=== PATIENT | female | born 2000 | race Two or more races ===

== ENCOUNTER 2024-02-15 23:14 | Emergency (ER) | payer MEDICAID ==
[~2024-02-15] VITALS: Ht 165.1 cm; Wt 71.8 kg
--- NOTE | 2024-02-15 23:54 | ED.PDOC ---
History of Present Illness HPI Comments 23 y/o F presents with c/o shortness of breath, chest-wall tightness, generalized weakness, chills, and nausea, today. Patient endorses on being 26x weeks with her 1st , currently ([id number]) and having sudden and unprovoked onset of symptoms, this evening, an hour prior to arrival to ED triage. Patient comments on having no prior history of symptoms in the past in addition to noticing her "finger tips turning blue," earlier. Patient reports no additional relevant or pertinent Hx, such as recent injuries, strenuous activities, or stressors. She denies having any palpitations, cough, vomiting, fever, or other associated symptoms or modifiers at this time. Chief Complaint: Shortness of Breath Time Seen by MD: 23:30 Reviewed Notes: Nurses Notes, Medications, Allergies Allergies: Coded Allergies: NO KNOWN ALLERGIES (Unverified , 02/16/24) Information Source: Patient Mode of Arrival: Ambulatory Severity: Moderate Timing: Hours Duration: Since onset Prehospital treatment: None Past Medical History PAST MEDICAL HISTORY: Denies Surgical History: Denies all surgeries SEC REPORTING CONSULTANT History: No Pertinent SEC REPORTING CONSULTANT History 1 Para 0 AB 0 LMP 08/24/23 Family History Family History: Unknown Social History Smoker: Non-Smoker Alcohol: Denies ETOH Use Drugs: Denies Drug Use Lives In: Home Constitutional: reports: chills Respiratory: reports: shortness of breath Cardiovascular: reports: chest pain Gastrointestinal: reports: nausea Neurological: reports: weakness All Other Systems: Reviewed and Negative (negative unless otherwise stated above or in HPI) Physical Exam General Appearance: Mild Distress, Normal, Other (anxious appearing) HEENT: Normal ENT Inspection, Pharynx Normal, TMs Normal Neck: Full Range of Motion, Non-Tender, Normal, Normal Inspection Respiratory: Chest Non-Tender, Lungs Clear, No Accessory Muscle Use, No Res piratory Distress, Normal Breath Sounds Cardiovascular: No Edema, No JVD, No Murmur, No Gallop, Normal Peripheral Pulses, Regular Rate/Rhythm Breast Exam: Deferred Gastrointestinal: No Organomegaly, Non Tender, No Pulsatile Mass, Normal Bowel Sounds, Soft Genitalia: Deferred Pelvic: Deferred Rectal: Deferred Extremities: No calf tenderness, Normal capillary refill, Normal inspection, Normal range of motion, Non-tender, No pedal edema Musculoskeletal : Apperance: Normal Neurologic: Alert, physicians and surgeons II-XII nml as Tested, No Motor Deficits, Normal Affect, Normal Mood, No Sensory Deficits Cerebellar Function: Normal Reflexes: Normal Skin: Dry, Normal Color, Warm Lymphatic: No Adenopathy Was a procedure done? Was a procedure done?: No Differential Dx Considerations may include: -induced, HI, PE, PNA, URI. viral syndrome, UTI. anxiety X-Ray, Labs, Meds, VS Vital Signs Date Time Temp Pulse Resp B/P (MAP) Pulse Ox O2 Delivery O2 Flow Rate FiO2 02/15/24 23:30 20 96 Room Air* 0 21 02/15/24 23:30 98.9 129 20 108/72 (84) 96 This 23-year-old female complaining of shortness of breath. However her O2 sat is 96 on room air. She has a history anxiety and displays classic symptoms of generalized anxiety. We had Respiratory examiner a and evaluate her as well and found that the patient had no respiratory signs indicating further testing. She has no complaints of complications of . We will have the patient follow up with the OBGYN for further evaluation and care. Time of 1ST Reevaluation: 00:00 Reevaluation 1ST: Unchanged Patient Education/Counseling: Diagnosis, Treatment Family Education/Counseling: No Family Present Departure 1 Departure Time of Disposition: 00:42 Impression: Primary Impression: Anxiety Additional Impression: Intrauterine Disposition: HOME / SELF CARE / HOMELESS Condition: Stable Additional Instructions: Reassessed patient, vital signs stable. Denies any new symptoms. Patient is able to tolerate PO and ambulate/be mobile at their baseline without concern. Risks and benefits of all medications given or prescribed, if any, discussed. All lab work, imaging and diagnostic studies were reviewed by me. The patient was counseled extensively on my clinical impression, diagnosis, expected course of the disease, and plan, including their follow-up care. Will discharge patient. Patient instructed to follow up with Primary Care Physician within 24-48 hours. Strict return precautions given for further exacerbation of symptoms or for new symptoms. The patient was given the opportunity to ask questions and all questions were answered by myself and the nursing/tech staff. Patient is in agreement with the care plan. The patient verbally expressed understanding of the discharge instructions, including the reasons to return to the Emergency Department. Discharged With: Self Critical Care Note Critical Care Time?: No Stability Stability form required: No Heart Score Heart Score: Heart Score Response (Comments) Value History N/A 0 EKG N/A 0 Age N/A 0 Risk Factors N/A 0 Troponin N/A 0 Total 0 I personally scribed for JIM DE LA CRUZ MD ([email or web address]) on 02/15/24 at 23:54. Electronically submitted by Joel Beltran ([email or web address]). JIM DE LA CRUZ MD Feb 15, 2024 23:54
[2024-02-16 00:59] VITALS: BP 116/76; PULSE 76; RESP 16; TEMP 98.4; O2SAT 97
== END 2024-02-16 01:39 | disposition home or self-care (01) ==
LOC: ER 23:14
DX: O99.342 Other mental disorders complicating pregnancy, second trimester (principal); F41.9 Anxiety disorder, unspecified; Z3A.26 26 weeks gestation of pregnancy